=== PATIENT | male | born 1955 | race Caucasian/White ===

== ENCOUNTER → 2016-12-06 | Outpatient (CLI) | payer BC ==
[~2016-12-06] MED LIST: ACETAMINOPHEN PR; ASPIRIN EC81 M1 PO; BENICAR HCT 40-1 TAB PO; COLACE PO; COLCHICINE PO; HYDRALAZINE HC100 MG PO; KEFLEX500 MG PO; LASIX20 MG PO; LIPITOR PO; LISINOPRIL PO; LORTAB 7.5-5001 TAB PO; MULTI-VITAMIN1 EAC1 PO; NORVASC PO; PLENDIL PO; PREDNISONE PO; PREDNISONE10 MG PO; PRINIVIL20 M1 PO; PROGRAF1 MG PO; TETRACYCLINE PO; TOPROL XL 50 MG50 MG PO; TOPROL XL PO; TOPROL XL100 MG PO; TRICOR145 MG PO; VICODIN 5/500 T1 TAB PO; VYTORIN 10/20 T1 TAB PO; ZORTRESS0.75 MG PO; ZYLOPRIM PO; [UNRECOGNIZED DRUG - OTHER] PO
[2016-12-06 09:27] LABS: BASOPHIL% 0.4 % (0-2.5); EOSINOPHIL# 0.1 X10e3 (0-0.7); EOSINOPHIL% 1.3 % (0.0-7.0); HEMATOCRIT 36.7 % (38.0-50.0); HEMOGLOBIN 12.3 gm/dL (13.0-16.0); LYMPHOCYTE# 0.3 X10e3 (1.0-3.5); LYMPHOCYTE% 6.2 % (17.0-45.0); MEAN CELL VOLUME 84.5 FL (83-96); MEAN CORPUSCULAR HEMOGLOBIN 28.3 PG (28-34); MEAN CORPUSCULAR HGB CONC 33.6 g/dL (30-36); MONOCYTE# 0.7 X10e3 (0-1.0); MONOCYTE% 14.5 % (3.0-12.0); NEUTROPHIL# 3.5 X10e3 (1.5-7.1); NEUTROPHIL% 77.6 % (40-75); PLATELET COUNT 222 X10e3 (140-420); RED BLOOD COUNT 4.34 X10e (3.90-5.60); RED CELL DISTRIBUTION WIDTH 12.9 % (11.0-15.5); WHITE BLOOD COUNT 4.5 X10e3 (4.0-10.5)
[2016-12-06 09:42] LABS: DIFF IND NO
[2016-12-06 09:48] LABS: BUN/CREATININE RATIO 11.57; CALCIUM SERUM 8.4 mg/dL (8.4-10.2); CREATININE SERUM 1.9 mg/dL (0.6-1.4); GLOM FILT RATE Estimated 38.4 mL/min (>60); POTASSIUM 3.1 mmol/L (3.5-5.1)
[2016-12-06 16:00] LABS: EVEROLIMUS - JH 4.8 ng/mL (3.0-8.0); FK506 (TACROLIMUS) - JH 3.8 ng/mL (5.0-20.0)
== END | disposition home or self-care (01) ==
LOC: SLAB 08:09
PROVIDERS: Internal Medicine Nephrology
DX: Z48.22 Encounter for aftercare following kidney transplant (principal); Z94.0 Kidney transplant status
CPT/HCPCS: 36415; 80048; 80197; 80299; 85025

== ENCOUNTER → 2016-12-26 | Outpatient (CLI) | payer BC ==
[2016-12-26 09:02] LABS: BASOPHIL% 0.6 % (0-2.5); EOSINOPHIL# 0.2 X10e3 (0-0.7); EOSINOPHIL% 4.1 % (0.0-7.0); HEMATOCRIT 35.4 % (38.0-50.0); HEMOGLOBIN 11.7 gm/dL (13.0-16.0); LYMPHOCYTE# 0.4 X10e3 (1.0-3.5); LYMPHOCYTE% 7.4 % (17.0-45.0); MEAN CELL VOLUME 83.3 FL (83-96); MEAN CORPUSCULAR HEMOGLOBIN 27.5 PG (28-34); MONOCYTE# 1.1 X10e3 (0-1.0); MONOCYTE% 21.1 % (3.0-12.0); NEUTROPHIL# 3.5 X10e3 (1.5-7.1); NEUTROPHIL% 66.8 % (40-75); PLATELET COUNT 225 X10e3 (140-420); RED BLOOD COUNT 4.25 X10e (3.90-5.60); WHITE BLOOD COUNT 5.2 X10e3 (4.0-10.5)
[2016-12-26 09:03] LABS: DIFF IND YES
[2016-12-26 09:10] LABS: ALBUMIN SERUM 3.7 g/dL (3.5-5.0); BILIRUBIN,TOTAL 0.4 mg/dL (0.2-2.0); BUN/CREATININE RATIO 19.56; CALCIUM SERUM 8.6 mg/dL (8.4-10.2); CREATININE SERUM 2.3 mg/dL (0.6-1.4); GLOM FILT RATE Estimated 29.3 mL/min (>60); POTASSIUM 3.3 mmol/L (3.5-5.1); PROTEIN TOTAL SERUM 7.6 g/dL (6.0-8.3)
[2016-12-26 09:48] LABS: PLATELET ESTIMATE NORMAL (NORMAL); RBC NORMAL YES
[2016-12-26 12:22] LABS: CREATININE,RANDOM URINE 94 mg/dL; TOTAL PROTEIN,RANDOM URINE 36 mg/dl (<10)
[2016-12-27 15:27] LABS: FK506 (TACROLIMUS) - JH 4.4 ng/mL (5.0-20.0)
[2016-12-28 07:05] LABS: EVEROLIMUS - JH 3.4 ng/mL (3.0-8.0)
== END | disposition home or self-care (01) ==
LOC: STPL 08:26
PROVIDERS: Surgery
DX: Z48.22 Encounter for aftercare following kidney transplant (principal); T45.1X1D Poisoning by antineoplastic and immunosuppressive drugs, accidental (unintentional), subsequent encounter; Z94.0 Kidney transplant status; Z79.899 Other long term (current) drug therapy
CPT/HCPCS: 36415; 80053; 80197; 80299; 82570; 84156; 85025

== ENCOUNTER → 2017-01-29 | Outpatient (CLI) | payer BC ==
[2017-01-29 08:43] LABS: BASOPHIL% 0.3 % (0-2.5); EOSINOPHIL# 0.2 X10e3 (0-0.7); EOSINOPHIL% 2.6 % (0.0-7.0); HEMATOCRIT 36.6 % (38.0-50.0); HEMOGLOBIN 11.9 gm/dL (13.0-16.0); LYMPHOCYTE# 0.4 X10e3 (1.0-3.5); LYMPHOCYTE% 6.6 % (17.0-45.0); MEAN CELL VOLUME 87.6 FL (83-96); MEAN CORPUSCULAR HEMOGLOBIN 28.5 PG (28-34); MEAN CORPUSCULAR HGB CONC 32.6 g/dL (30-36); MEAN PLATELET VOLUME 7.1 FL (6.5-11.5); MONOCYTE# 0.8 X10e3 (0-1.0); MONOCYTE% 13.9 % (3.0-12.0); NEUTROPHIL# 4.6 X10e3 (1.5-7.1); NEUTROPHIL% 76.6 % (40-75); PLATELET COUNT 245 X10e3 (140-420); RED BLOOD COUNT 4.18 X10e (3.90-5.60); RED CELL DISTRIBUTION WIDTH 16.2 % (11.0-15.5); WHITE BLOOD COUNT 6.1 X10e3 (4.0-10.5)
[2017-01-29 08:47] LABS: DIFF IND NO
[2017-01-29 09:02] LABS: CALCIUM SERUM 8.9 mg/dL (8.4-10.2); GLOM FILT RATE Estimated 34.7 mL/min (>60); POTASSIUM 3.8 mmol/L (3.5-5.1)
[2017-01-30 15:11] LABS: FK506 (TACROLIMUS) - JH 5.4 ng/mL (5.0-20.0)
[2017-01-30 15:19] LABS: EVEROLIMUS - JH <2.0 ng/mL (3.0-8.0)
== END | disposition home or self-care (01) ==
LOC: SLAB 08:11
PROVIDERS: Internal Medicine Nephrology
DX: Z48.22 Encounter for aftercare following kidney transplant (principal); Z94.0 Kidney transplant status
CPT/HCPCS: 36415; 80048; 80197; 80299; 85025